=== PATIENT | male | born 1990 | race Caucasian/White ===

== ENCOUNTER 2018-12-27 06:20 | Emergency (ER) | payer BC ==
--- NOTE | 2018-12-27 06:25 | ER Report ---
History and Physical Time Seen By MD: 06:21 HPI/ROS CHIEF COMPLAINT: groin pain HISTORY OF PRESENT ILLNESS: This is a 28 year old male. He had onset of severe left groin, testicular and abdominal pain. Worst pain in the left testicle and scrotum. Pain into left abdomen up the umbilicus. No diarrhea, normal bowels yesterday. Has some nausea. Feels need to urinate, but cant. No fevers or chills. No history of STDs or discharge or sores. No masses in scrotum or lower abdomen felt. Allergies: Coded Allergies: No Known Drug Allergies (Unverified , 12/27/18) Home Meds Active Scripts Levofloxacin 500 Mg Tab (LEVAQUIN 500 MG TAB) 500 Mg Tablet, 500 MG PO QDAY for 7 Days, TAB Prov:COCO SALDANA MD 12/27/18 Tamsulosin Hcl (FLOMAX) 0.4 Mg Cap.er.24h, 0.4 MG PO QDAY for 14 Days, #14 CAP 0 Refills Prov:COCO SALDANA MD 12/27/18 Hydrocodone Bit/Acetaminophen (NORCO 5-325 TABLET) 1 Each Tablet, 1 EACH PO 2- 4XD PRN for PAIN, #20 TAB Prov:COCO SALDANA MD 12/27/18 Reviewed Nurses Notes: Yes Constitutional Vital Sign - Last 24 Hours 12/27/18 12/27/18 12/27/18 12/27/18 06:20 06:23 06:30 06:40 Temp 98.7 Pulse 80 78 80 Resp 16 B/P (MAP) 124/80 (95) 124/80 132/72 (92) Pulse Ox 92 95 O2 Delivery Room Air 12/27/18 12/27/18 12/27/18 12/27/18 06:48 07:00 07:20 07:30 Pulse 80 67 B/P (MAP) 124/63 (83) 114/74 (87) Pulse Ox 97 96 O2 Flow Rate 2.0 12/27/18 12/27/18 12/27/18 12/27/18 08:00 08:05 08:25 08:30 Pulse 113 75 72 B/P (MAP) 126/69 (88) 117/81 (93) Pulse Ox 92 97 95 12/27/18 12/27/18 12/27/18 12/27/18 08:45 09:00 09:05 09:25 Pulse 66 72 74 B/P (MAP) 123/83 (96) Pulse Ox 96 97 96 12/27/18 12/27/18 12/27/18 12/27/18 09:30 09:45 10:00 10:20 Pulse 60 76 69 B/P (MAP) 132/78 (96) 124/60 (81) Pulse Ox 97 81 96 12/27/18 12/27/18 12/27/18 12/27/18 10:30 10:40 11:00 11:20 Pulse 81 88 79 B/P (MAP) 127/76 (93) 136/87 (103) Pulse Ox 92 97 98 12/27/18 12/27/18 12/27/18 12/27/18 11:30 11:40 12:00 12:20 Pulse 68 88 83 B/P (MAP) 135/93 (107) 148/84 (105) Pulse Ox 98 98 94 12/27/18 12/27/18 12/27/18 12/27/18 12:40 13:00 13:20 13:30 Pulse 72 73 65 B/P (MAP) 129/65 (86) 121/55 (77) Pulse Ox 92 90 12/27/18 12/27/18 12/27/18 13:40 14:00 14:20 Pulse 82 77 61 B/P (MAP) 120/88 (99) Pulse Ox 91 93 92 Physical Exam General Appearance: The patient is alert. No acute distress. Eyes: Pupils are equal, round. No pallor, injection or icterus. ENT: Mucous membranes are moist. Respiratory: Lungs are clear to auscultation. Cardiovascular: Regular rate and rhythm. No murmurs, gallops or rubs. Normal peripheral perfusion. Gastrointestinal: Abdomen is soft, tender in left side, Guarding but no rebound. Nondistended. No masses or organomegaly. Normal active bowel sounds. : Testicular pain on left. No direct or indirect inguinal hernias felt. No masses. No sores or discharge. Right testicle and scrotum normal. Neurological: Alert and oriented x3. No focal neurologic deficits Skin: Warm and dry. Musculoskeletal: Extremities are nontender. DIFFERENTIAL DIAGNOSIS: After history and physical exam, differential diagnosis was considered for testicular and abdominal/groin pain. Need to rule out torsion, masses, but suspect likely epididymitis. Medical Decision Making Data Points Result Diagram: 12/27/18 0636 12/27/18 0636 Laboratory Hematology Test 12/27/18 06:36 White Blood Count 17.2 k/uL (4.5-11.0) H Red Blood Count 4.85 M/uL (4.00-5.60) Hemoglobin 15.9 g/dL (14.0-18.0) Hematocrit 45.0 % (42.0-52.0) Mean Corpuscular Volume 92.8 fL (80.0-96.0) Mean Corpuscular Hemoglobin 32.8 pg (26.0-33.0) Mean Corpuscular Hemoglobin Concent 35.3 g/dL (32.0-36.0) Red Cell Distribution Width 14.0 % (11.5-14.5) Platelet Count 266 K/uL (150-450) Mean Platelet Volume 8.5 fL (7.2-11.1) Neutrophils (%) (Auto) 86.5 % (39.4-72.5) H Lymphocytes (%) (Auto) 10.5 % (17.6-49.6) L Monocytes (%) (Auto) 2.5 % (4.1-12.4) L Eosinophils (%) (Auto) 0.3 % (0.4-6.7) L Basophils (%) (Auto) 0.2 % (0.3-1.4) L Nucleated RBC Relative Count (auto) 0.0 /100WBC Neutrophils # (Auto) 14.9 K/uL (2.0-7.4) H Lymphocytes # (Auto) 1.8 K/uL (1.3-3.6) Monocytes # (Auto) 0.4 K/uL (0.3-1.0) Eosinophils # (Auto) 0.1 K/uL (0.0-0.5) Basophils # (Auto) 0.0 K/uL (0.0-0.1) Nucleated RBC Absolute Count (auto) 0.00 K/uL Peripheral Blood Smear No Y/N Chemistry Test 12/27/18 06:36 Sodium Level 139 mmol/L (137-145) Potassium Level 4.3 mmol/L (3.5-5.0) Chloride Level 105 mmol/L (98-107) Carbon Dioxide Level 24 mmol/L (22-30) Blood Urea Nitrogen 15 mg/dl (9-21) Creatinine 1.20 mg/dl (0.66-1.25) Glomerular Filtration Rate Calc > 60.0 Random Glucose 140 mg/dl (75-110) Calcium Level 10.0 mg/dl (8.4-10.2) Total Bilirubin 0.5 mg/dl (0.2-1.3) Aspartate Amino Transf (AST/SGOT) 27 U/L (0-35) Alanine Aminotransferase (ALT/SGPT) 35 U/L (0-56) Alkaline Phosphatase 131 U/L (0-126) Total Creatine Kinase 218 U/L (55-170) Total Protein 7.7 g/dl (6.3-8.2) Albumin 4.4 g/dl (3.5-5.0) Serology Test 12/27/18 10:03 Urinalysis Test 12/27/18 10:03 Urine Color Ramila Urine Clarity Cloudy Urine pH 6.0 pH (4.8-9.5) Urine Specific [place] 1.027 Urine Protein 100 mg/dL (NEGATIVE) Urine Glucose (UA) Negative mg/dL (NEGATIVE) Urine Ketones 20 mg/dL (NEGATIVE) Urine Blood Large (NEGATIVE) Urine Nitrite Negative (NEGATIVE) Urine Bilirubin Negative (NEGATIVE) Urine Urobilinogen Negative mg/dL (0.2-1.9) Urine Leukocyte Esterase Negative (NEGATIVE) Urine RBC 1857 /HPF (0-2/HPF) Urine WBC 12 /HPF (0-5/HPF) Urine Squamous Epithelial Cells None /LPF (</=FEW) Urine Bacteria Negative /HPF (NONE-FEW) Urine Mucus Few /HPF (NONE-FEW) ED Course/Re-evaluation ED Course Dr. Saldana assumed care of the patient at shift change. See other note for his evaluation. Decision to Disposition Date: Dec 27, 2018 Decision to Disposition Time: 14:00 Depart Departure Latest Vital Signs Vital Signs Date Time Temp Pulse Resp B/P (MAP) Pulse Ox O2 Delivery O2 Flow Rate FiO2 12/27/18 14:20 61 92 12/27/18 14:00 120/88 (99) 12/27/18 06:48 2.0 12/27/18 06:23 98.7 16 Room Air Impression: Primary Impression: Epididymitis Additional Impressions: Hematuria Left nephrolithiasis Condition: Improved Disposition: HOME OR SELF-CARE New Scripts Levofloxacin 500 Mg Tab (LEVAQUIN 500 MG TAB) 500 Mg Tablet 500 MG PO QDAY for 7 Days, TAB Prov: COCO SALDANA MD 12/27/18 Tamsulosin Hcl (FLOMAX) 0.4 Mg Cap.er.24h 0.4 MG PO QDAY for 14 Days, #14 CAP 0 Refills Prov: COCO SALDANA MD 12/27/18 Hydrocodone Bit/Acetaminophen (NORCO 5-325 TABLET) 1 Each Tablet 1 EACH PO 2-4XD PRN for PAIN, #20 TAB Prov: COCO SALDANA MD 12/27/18 Problem Qualifiers Additional Impressions: Hematuria Hematuria type: gross Qualified Codes: R31.0 - Gross hematuria CARMITA DUNAWAY MD Dec 27, 2018 06:25
[2018-12-27] MEDS ORDERED: HYDROMORPHONE HCL 1 MG/ML SYRINGE IVP ONE ×2 (06:35→08:55)
[2018-12-27 07:04] LABS: PLATELET COUNT, AUTOMATED 266 K/uL (150-450)
--- NOTE | 2018-12-27 08:13 | RADIOLOGY IMAGING REPORT ---
FACILITY: [facility] - [place] PATIENT NAME: Paul Haq : 1990 MR: [id number] V: [id number] EXAM DATE: ORDERING PHYSICIAN: CARMITA DUNAWAY TECHNOLOGIST: Location: [facility] [place] Patient: Paul Haq : 1990 Visit/Account:[id number] Date of Sevice: 12/27/2018 SCROTAL ULTRASOUND INDICATION: Testicular pain COMPARISON: None available. FINDINGS: Right testicle measures 4.7 x 2.6 x 3.1 cm in cc, AP, and transverse dimensions respectively. There is mildly increased arterial and venous blood flow. There is a trace hydrocele. No varicocele identified. The right epididymal head measures 1 cm. The vertebral body is diffusely increased in size with incre ased vascularity with epididymitis Left testicle measures 4.7 x 2.2 x 2.9 cm in cc, AP, and transverse dimensions respectively. There is mildly increased arterial and venous blood flow. There is a trace hydrocele No varicocele identified. The left epididymal head measures 1.1 cm. The epididymal body is diffusely increased in size with inc reased vascularity consistent with epididymitis The bilateral testicles appear homogenous in echogenicity. IMPRESSION: 1. Bilaterally, the epididymides are increased in vascularity. The testes are symmetric in size and e chotexture with mildly increased blood flow. Findings are consistent with epididymal orchitis. 2. Simple trace bilateral hydroceles are noted as well Report Dictated By: Steffen Campuzano at 12/27/2018 7:58 AM Report E-Signed By: Steffen Campuzano at 12/27/2018 8:06 AM WSN:[id number]
--- NOTE | 2018-12-27 08:17 | ER Report ---
History and Physical Time Seen By MD: 08:01 Hx. of Stated Complaint: LEFT TESTICLE AND GROIN PAIN THAT WOKE HIM UP SUDDENLY AROUND 2:30AM Allergies: Coded Allergies: No Known Drug Allergies (Unverified , 12/27/18) Home Meds Active Scripts Levofloxacin 500 Mg Tab (LEVAQUIN 500 MG TAB) 500 Mg Tablet, 500 MG PO QDAY for 7 Days, TAB Prov:COCO SALDANA MD 12/27/18 Tamsulosin Hcl (FLOMAX) 0.4 Mg Cap.er.24h, 0.4 MG PO QDAY for 14 Days, #14 CAP 0 Refills Prov:COCO SALDANA MD 12/27/18 Hydrocodone Bit/Acetaminophen (NORCO 5-325 TABLET) 1 Each Tablet, 1 EACH PO 2- 4XD PRN for PAIN, #20 TAB Prov:COCO SALDANA MD 12/27/18 Hx Substance Use Disorder: No Hx Alcohol Use: No Constitutional Vital Sign - Last 24 Hours 12/27/18 12/27/18 12/27/18 12/27/18 06:20 06:23 06:30 06:40 Temp 98.7 Pulse 80 78 80 Resp 16 B/P (MAP) 124/80 (95) 124/80 132/72 (92) Pulse Ox 92 95 O2 Delivery Room Air 12/27/18 12/27/18 12/27/18 12/27/18 06:48 07:00 07:20 07:30 Pulse 80 67 B/P (MAP) 124/63 (83) 114/74 (87) Pulse Ox 97 96 O2 Flow Rate 2.0 12/27/18 12/27/18 12/27/18 12/27/18 08:00 08:05 08:25 08:30 Pulse 113 75 72 B/P (MAP) 126/69 (88) 117/81 (93) Pulse Ox 92 97 95 12/27/18 12/27/18 12/27/18 12/27/18 08:45 09:00 09:05 09:25 Pulse 66 72 74 B/P (MAP) 123/83 (96) Pulse Ox 96 97 96 12/27/18 12/27/18 12/27/18 12/27/18 09:30 09:45 10:00 10:20 Pulse 60 76 69 B/P (MAP) 132/78 (96) 124/60 (81) Pulse Ox 97 81 96 12/27/18 12/27/18 12/27/18 12/27/18 10:30 10:40 11:00 11:20 Pulse 81 88 79 B/P (MAP) 127/76 (93) 136/87 (103) Pulse Ox 92 97 98 12/27/18 12/27/18 12/27/18 12/27/18 11:30 11:40 12:00 12:20 Pulse 68 88 83 B/P (MAP) 135/93 (107) 148/84 (105) Pulse Ox 98 98 94 12/27/18 12/27/18 12/27/18 12/27/18 12:40 13:00 13:20 13:30 Pulse 72 73 65 B/P (MAP) 129/65 (86) 121/55 (77) Pulse Ox 92 90 12/27/18 12/27/18 12/27/18 13:40 14:00 14:20 Pulse 82 77 61 B/P (MAP) 120/88 (99) Pulse Ox 91 93 92 Medical Decision Making Data Points Result Diagram: 12/27/18 0636 12/27/18 0636 Laboratory Hematology Test 12/27/18 06:36 White Blood Count 17.2 k/uL (4.5-11.0) H Red Blood Count 4.85 M/uL (4.00-5.60) Hemoglobin 15.9 g/dL (14.0-18.0) Hematocrit 45.0 % (42.0-52.0) Mean Corpuscular Volume 92.8 fL (80.0-96.0) Mean Corpuscular Hemoglobin 32.8 pg (26.0-33.0) Mean Corpuscular Hemoglobin Concent 35.3 g/dL (32.0-36.0) Red Cell Distribution Width 14.0 % (11.5-14.5) Platelet Count 266 K/uL (150-450) Mean Platelet Volume 8.5 fL (7.2-11.1) Neutrophils (%) (Auto) 86.5 % (39.4-72.5) H Lymphocytes (%) (Auto) 10.5 % (17.6-49.6) L Monocytes (%) (Auto) 2.5 % (4.1-12.4) L Eosinophils (%) (Auto) 0.3 % (0.4-6.7) L Basophils (%) (Auto) 0.2 % (0.3-1.4) L Nucleated RBC Relative Count (auto) 0.0 /100WBC Neutrophils # (Auto) 14.9 K/uL (2.0-7.4) H Lymphocytes # (Auto) 1.8 K/uL (1.3-3.6) Monocytes # (Auto) 0.4 K/uL (0.3-1.0) Eosinophils # (Auto) 0.1 K/uL (0.0-0.5) Basophils # (Auto) 0.0 K/uL (0.0-0.1) Nucleated RBC Absolute Count (auto) 0.00 K/uL Peripheral Blood Smear No Y/N Chemistry Test 12/27/18 06:36 Sodium Level 139 mmol/L (137-145) Potassium Level 4.3 mmol/L (3.5-5.0) Chloride Level 105 mmol/L (98-107) Carbon Dioxide Level 24 mmol/L (22-30) Blood Urea Nitrogen 15 mg/dl (9-21) Creatinine 1.20 mg/dl (0.66-1.25) Glomerular Filtration Rate Calc > 60.0 Random Glucose 140 mg/dl (75-110) Calcium Level 10.0 mg/dl (8.4-10.2) Total Bilirubin 0.5 mg/dl (0.2-1.3) Aspartate Amino Transf (AST/SGOT) 27 U/L (0-35) Alanine Aminotransferase (ALT/SGPT) 35 U/L (0-56) Alkaline Phosphatase 131 U/L (0-126) Total Creatine Kinase 218 U/L (55-170) Total Protein 7.7 g/dl (6.3-8.2) Albumin 4.4 g/dl (3.5-5.0) Serology Test 12/27/18 10:03 Urinalysis Test 12/27/18 10:03 Urine Color Ramila Urine Clarity Cloudy Urine pH 6.0 pH (4.8-9.5) Urine Specific [place] 1.027 Urine Protein 100 mg/dL (NEGATIVE) Urine Glucose (UA) Negative mg/dL (NEGATIVE) Urine Ketones 20 mg/dL (NEGATIVE) Urine Blood Large (NEGATIVE) Urine Nitrite Negative (NEGATIVE) Urine Bilirubin Negative (NEGATIVE) Urine Urobilinogen Negative mg/dL (0.2-1.9) Urine Leukocyte Esterase Negative (NEGATIVE) Urine RBC 1857 /HPF (0-2/HPF) Urine WBC 12 /HPF (0-5/HPF) Urine Squamous Epithelial Cells None /LPF (</=FEW) Urine Bacteria Negative /HPF (NONE-FEW) Urine Mucus Few /HPF (NONE-FEW) Depart Departure Latest Vital Signs Vital Signs Date Time Temp Pulse Resp B/P (MAP) Pulse Ox O2 Delivery O2 Flow Rate FiO2 12/27/18 14:20 61 92 12/27/18 14:00 120/88 (99) 12/27/18 06:48 2.0 12/27/18 06:23 98.7 16 Room Air Condition: Stable Disposition: HOME OR SELF-CARE New Scripts Levofloxacin 500 Mg Tab (LEVAQUIN 500 MG TAB) 500 Mg Tablet 500 MG PO QDAY for 7 Days, TAB Prov: COCO SALDANA MD 12/27/18 Tamsulosin Hcl (FLOMAX) 0.4 Mg Cap.er.24h 0.4 MG PO QDAY for 14 Days, #14 CAP 0 Refills Prov: COCO SALDANA MD 12/27/18 Hydrocodone Bit/Acetaminophen (NORCO 5-325 TABLET) 1 Each Tablet 1 EACH PO 2-4XD PRN for PAIN, #20 TAB Prov: COCO SALDANA MD 12/27/18 COCO SALDANA MD Dec 27, 2018 08:17
[2018-12-27] MEDS ORDERED: NS(*) 0.9% 1000 ML BAG 1,000 ML IV ONE ×2 (08:20→10:50)
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
[2018-12-27] MEDS ORDERED: IOPAMIDOL 76% 100 ML INFUS BTL 100 ML ONE (12:43)
--- NOTE | 2018-12-27 13:37 | RADIOLOGY IMAGING REPORT ---
FACILITY: [facility] PATIENT NAME: Paul Haq : 1990 MR: [id number] V: [id number] EXAM DATE: ORDERING PHYSICIAN: COCO SALDANA TECHNOLOGIST: Location: [facility] [place] Patient: Paul Haq : 1990 Visit/Account:[id number] Date of Sevice: 12/27/2018 CT ABDOMEN PELVIS W/ CON HISTORY: , gross hematuria and testicular pain TECHNIQUE: CT abdomen and pelvis with intravenous contrast. One of the following dose optimization techniques was utilized in the performance of this exam: autom ated exposure control; adjustment of the mA and/or kV according to patient size; or use of iterative reconstruction technique. Specific details can be referenced in the facility?s radiology CT exam oper ational policy. CONTRAST: 75 mL Isovue 370 COMPARISON: None. FINDINGS: Visualized lung bases: Negative. Hepatobiliary: Negative. Spleen: Negative. Adrenals: Negative. Pancreas: Negative. Kidneys/: On the left there is mild hydronephrosis with a delayed nephrogram. Within the proximal right ureter series 2 image 79 there is a 2 mm obstructing stone present. No other ureteral calculi a re identified. GI: Negative. Vessels/spaces/nodes: Negative. Bones/soft tissues: Negative. IMPRESSION: 2 mm obstructing proximal left ureteral stone with delayed nephrogram. The remainder of the examination is within normal limits. Report Dictated By: Steffen Campuzano at 12/27/2018 1:15 PM Report E-Signed By: Steffen Campuzano at 12/27/2018 1:30 PM WSN:[id number]
[2018-12-27 14:00] VITALS: BP 120/88
[2018-12-27] MEDS ORDERED: HYDR-653 PO (14:09)
[2018-12-27] MEDS ORDERED: TAMS0.4C25 PO (14:09)
[2018-12-27] MEDS ORDERED: cefTRIAXone 1 GM VIAL IVP ONE (14:15)
[2018-12-27] MEDS ORDERED: LEVO-85 PO (14:17)
== END 2018-12-27 14:42 | disposition home or self-care (01) ==
LOC: ER 06:34
DX: N20.0 Calculus of kidney (principal); N45.1 Epididymitis; R31.9 Hematuria, unspecified
CPT/HCPCS: 74177; 76870; 81001; 82550; 85025; 87491; 87591; 96361; 96374; 96375; 96376; 99284; J0696; J1170; J7030; Q9967; 82040; 82247; 82310; 82374; 82435; 82565; 82947; 84075; 84132; 84155; 84295; 84450; 84460; 84520